=== PATIENT | female | born 1980 | race Caucasian/White ===

== ENCOUNTER 2017-09-22 04:14 | Emergency (ER) | payer OTHER ==
[~2017-09-22] VITALS: Ht 167.6 cm; Wt 80.0 kg
[~2017-09-22 04:14] MED LIST: CYCL-36 PO; ZOLO20CO PO
[2017-09-22 04:17] VITALS: BP 152/104; PULSE 97; RESP 18; TEMP 98.4; O2SAT 99
[2017-09-22] MEDS ORDERED: LACTATED RINGER'S 1000 ML INJ 1,000 ML IV SCH (04:41)
[2017-09-22 04:45] VITALS: RESP 20
[2017-09-22] MEDS ORDERED: HYDROmorphone HCL PF 2 MG/ML VIAL IV PUSH ONE (04:45)
[2017-09-22] MEDS ORDERED: DIPHTH/TETANUS/ACEL PERTUSSIS (BOOSTER) 0.5 ML VIAL/PFS IM ONE (04:45)
[2017-09-22] MEDS ORDERED: SODIUM CHLORIDE 0.9% FLUSH 10 ML FLUSH IVF PRN (04:45)
[2017-09-22] MEDS ORDERED: ONDANSETRON HCL 4 MG/2 ML VIAL IV PUSH ONE (04:45)
[2017-09-22] MEDS ORDERED: ceFAZolin 2 GM PREMIX 100 ML IV ONE (04:45)
[2017-09-22 04:49] VITALS: BP 203/103; PULSE 100; RESP 20; TEMP 98; O2SAT 100
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
[2017-09-22] MEDS ORDERED: ceFAZolin 2 GM PREMIX 50 ML ONE (05:13)
[2017-09-22 05:21] LABS: AUTOMATED NEUTROPHIL # 8.9 TH/MM3 (1.8-7.7); BASOPHIL % 0.2 % (0.0-2.0); EOSINOPHIL % 0.3 % (0.0-4.0); HEMATOCRIT 41.5 % (35.0-46.0); HEMOGLOBIN 14.1 GM/DL (11.6-15.3); LYMPH % 15.1 % (9.0-44.0); LYMPHOCYTE # 1.7 TH/MM3 (1.0-4.8); MEAN CORPUSCULAR HEMOGLOBIN 30.8 PG (27.0-34.0); MEAN CORPUSCULAR HGB CONC 33.9 % (32.0-36.0); MEAN PLATELET VOLUME 8.3 FL (7.0-11.0); MONO % 6.4 % (0.0-8.0); MONOCYTE # 0.7 TH/MM3 (0-0.9); PLATELET COUNT 234 TH/MM3 (150-450); RED BLOOD COUNT 4.56 MIL/MM3 (4.00-5.30); RED CELL DISTRIBUTION WIDTH 13.4 % (11.6-17.2); WHITE BLOOD COUNT 11.4 TH/MM3 (4.0-11.0)
[2017-09-22 05:23] LABS: BICARBONATE 22.7 MEQ/L (21.0-32.0); CALCIUM 8.7 MG/DL (8.5-10.1); CREATININE 0.91 MG/DL (0.50-1.00)
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
[2017-09-22] MEDS ORDERED: IOHEXOL 350 MG/ML 10 ML VIAL (for RAD DIAG) IVCONTRAST ONE (05:48)
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
[2017-09-22] MEDS ORDERED: HYDR-3516 PO (06:46)
[2017-09-22 07:09] VITALS: BP 134/86; PULSE 95; RESP 21; O2SAT 98
== END 2017-09-22 07:39 | disposition home or self-care (01) ==
LOC: NEPC 04:14
DX: S01.01XA Laceration without foreign body of scalp, initial encounter (principal); V87.8XXA Person injured in other specified noncollision transport accidents involving motor vehicle (traffic), initial encounter; M25.512 Pain in left shoulder; M79.632 Pain in left forearm; M79.642 Pain in left hand; Z23 Encounter for immunization
CPT/HCPCS: 12002; 70450; 71045; 71260; 72125; 72170; 73090; 73130; 74177; 80048; 80307; 85025; 90471; 90715; 96365; 96375; 99285; J0690; J1170; J2405; J7120; Q9967